=== PATIENT | male | born 1965 | race Caucasian/White ===

== ENCOUNTER 2016-12-07 18:17 | Emergency (ER) | payer OTHER ==
[~2016-12-07] VITALS: Ht 175.3 cm; Wt 80.4 kg
[2016-12-07] MEDS ORDERED: AMPICILLIN/SULBACTAM 3 GM in SODIUM CHLORIDE 0.9% 100 ML IVPB ONE (18:30)
[2016-12-07] MEDS ORDERED: SODIUM CHLORIDE FLUSH 10ML SYR IVF ONE (18:30)
[2016-12-07] MEDS ORDERED: SODIUM CHLORIDE 0.9% 1,000ML IVBOLUS ONE (18:30)
[2016-12-07 20:34] VITALS: BP 142/92
== END 2016-12-07 20:36 | disposition home or self-care (01) ==
LOC: ED 20:30
DX: L03.113 Cellulitis of right upper limb (principal)
CPT/HCPCS: 36415; 83605; 85025; 87040; 99285

== ENCOUNTER → 2020-04-25 | Outpatient (CLI) | payer BC | END | disposition home or self-care (01) | LOC: CFH 08:48 | PROVIDERS: ATTEND Orthopaedic Surgery | DX: S62.002A Unspecified fracture of navicular [scaphoid] bone of left wrist, initial encounter for closed fracture (principal); M19.032 Primary osteoarthritis, left wrist; M25.732 Osteophyte, left wrist; M25.832 Other specified joint disorders, left wrist; X58.XXXA Exposure to other specified factors, initial encounter; Y93.89 Activity, other specified; Y92.89 Other specified places as the place of occurrence of the external cause; Y99.8 Other external cause status ==